=== PATIENT | female | born 1970 | race African-American/Black ===

== ENCOUNTER 2019-05-30 07:21 | Emergency (ER) | payer MEDICAID ==
[~2019-05-30] VITALS: Ht 165.1 cm; Wt 90.0 kg
[2019-05-30] MEDS ORDERED: ACETAMINOPHEN 325MG TABLET PO STA (08:05)
[2019-05-30 08:43] LABS: HEMATOCRIT. 48.7 % (36.0-48.0); HEMOGLOBIN. 15.8 g/dL (12.0-16.0); MEAN CORPUSCULAR HEMOGLOBIN 27.3 pg (28.0-32.0); MEAN CORPUSCULAR VOLUME 84.3 fL (81.0-99.0); MEAN PLATELET VOLUME 7.7 fl (7.4-10.4); PLATELET 227 x1000/uL (130-400); RED BLOOD CELL COUNT 5.77 mill/uL (4.2-5.4)
[2019-05-30 08:51] LABS: CHLORIDE 108 mEq/L (98-107)
[2019-05-30 08:51] LABS: CLARITY URINE CLEAR (CLEAR); COLOR URINE YELLOW (YELLOW); KETONES URINE NEGATIVE (NEGATIVE); LEUKOCYTE ESTERASE URINE NEGATIVE (NEGATIVE); NITRITE URINE NEGATIVE (NEGATIVE); OCCULT BLOOD URINE 1+ (NEGATIVE); PH URINE 6.5 (4.5-8.0); PROTEIN URINE 2+ (NEGATIVE); SPECIFIC GRAVITY URINE 1.013 (1.005-1.030)
[2019-05-30 08:55] LABS: ETHANOL BLOOD < 10 mg/dL
[2019-05-30 09:02] LABS: *AMPHETAMINES SCREEN URINE NEGATIVE (NEGATIVE); *BARBITURATES SCREEN URINE NEGATIVE (NEGATIVE); *BENZODIAZEPINES SCREEN URINE NEGATIVE (NEGATIVE); *COCAINE SCREEN URINE NEGATIVE (NEGATIVE)
[2019-05-30 09:03] LABS: CANNABINOID URINE SCREEN PRESUMTIVE POSITIVE (NEGATIVE); METHADONE URINE SCREEN NEGATIVE (NEGATIVE); OPIATES URINE SCREEN NEGATIVE (NEGATIVE); PHENCYCLIDINE URINE SCREEN NEGATIVE (NEGATIVE)
[2019-05-30 09:05] LABS: HCG SCREEN NEGATIVE
[2019-05-30 09:54] LABS: PLATELET ESTIMATE NORMAL
[2019-05-30] MEDS ORDERED: MORPHINE SULFATE 4 MG/ML CPJ (NOT FOR IM USE) IV STA (10:35)
[2019-05-30] MEDS ORDERED: DIPHENHYDRAMINE 50MG/ML VIAL IV ONE (11:00)
[2019-05-30] MEDS ORDERED: MORPHINE SULFATE 2 MG/ML CPJ (NOT FOR IM USE) IV NR (12:30)
[2019-05-30] MEDS ORDERED: BALANCED SALT IRRIG SOLN 15ML IR ONE (12:30)
[2019-05-30] MEDS ORDERED: FLUORESCEIN SODIUM 1MG/STRIP BOTHEYE ONE (12:30)
[2019-05-30] MEDS ORDERED: TETRACAINE 0.5% OPHTH DROPS 4ML BOTHEYE ONE (12:30)
[2019-05-30 17:27] VITALS: BP 158/92
== END 2019-05-30 22:00 | disposition short-term general hospital (02) ==
LOC: ER 07:21
DX: S02.85XA Fracture of orbit, unspecified, initial encounter for closed fracture (principal); S05.10XA Contusion of eyeball and orbital tissues, unspecified eye, initial encounter; S01.512A Laceration without foreign body of oral cavity, initial encounter; E07.9 Disorder of thyroid, unspecified; X58.XXXA Exposure to other specified factors, initial encounter; Y09 Assault by unspecified means; Y92.9 Unspecified place or not applicable; Z88.6 Allergy status to analgesic agent
CPT/HCPCS: 36415; 70450; 70486; 71101; 72125; 80048; 80305; 80307; 80320; 80329; 81003; 81025; 84703; 85025; 96374; 96376; 99285; J1200; J2270; G0480